=== PATIENT | female | born 1975 | race Caucasian/White ===

== ENCOUNTER 2019-06-17 19:19 | Emergency (ER) | payer BC ==
[~2019-06-17] VITALS: Ht 152.4 cm; Wt 79.8 kg
[2019-06-17 19:24] VITALS: Ht 152.4 cm; Wt 79.8 kg
[2019-06-17 20:46] LABS: BASOPHIL % 0.5 % (0-2); PLATELET COUNT 259 x10^3mcL (130-400); RED CELL DISTRIBUTION WIDTH 14.2 % (11.5-14.5)
[2019-06-17 21:01] LABS: CALCIUM 8.5 mg/dL (8.5-10.1); CARBON DIOXIDE 24.7 mmol/L (21-32); CHLORIDE SERUM 105 mmol/L (98-107); CREATININE SERUM 0.8 mg/dL (0.6-1.0); GFR1 > 60 mL/min; GLUCOSE SERUM 100 mg/dL (74-106); POTASSIUM SERUM 3.6 mmol/L (3.5-5.1); SODIUM SERUM 139 mmol/L (136-145)
[2019-06-18 00:47] VITALS: BP 126/63
== END 2019-06-18 00:47 | disposition home or self-care (01) ==
LOC: ED 19:19
PROVIDERS: Emergency Medicine
DX: R20.2 Paresthesia of skin (principal); R53.1 Weakness; Z86.73 Personal history of transient ischemic attack (TIA), and cerebral infarction without residual deficits
CPT/HCPCS: 36415; Q9967